=== PATIENT | male | born 1970 | race Caucasian/White ===

== ENCOUNTER 2017-07-02 15:46 | Emergency (ER) | payer OTHER ==
[2017-07-02] MEDS: DIPHTH/TET/ACEL PERTUSS (ADULT) 0.5 ML VIAL IM* (16:32)
[2017-07-02] MEDS: LIDOCAINE 1% (MDV) 10 ML INJ INFIL (16:32)
[2017-07-02] MEDS: CEFAZOLIN 1 GM INJ IM (17:51)
== END 2017-07-02 19:58 | disposition home or self-care (01) ==
LOC: FTE 15:46
DX: S61.313A Laceration without foreign body of left middle finger with damage to nail, initial encounter (principal); I10 Essential (primary) hypertension; E11.9 Type 2 diabetes mellitus without complications; W23.0XXA Caught, crushed, jammed, or pinched between moving objects, initial encounter; Y92.89 Other specified places as the place of occurrence of the external cause; Z23 Encounter for immunization
CPT/HCPCS: 11760; 73130-LT; 90471; 90715; 96372; 99284-25

== ENCOUNTER 2017-07-05 10:27 | Emergency (ER) | payer OTHER | END 2017-07-06 06:25 | disposition home or self-care (01) | LOC: E/R 07-06 06:25 | DX: Z48.01 Encounter for change or removal of surgical wound dressing (principal); I10 Essential (primary) hypertension; E11.9 Type 2 diabetes mellitus without complications; S61.313A Laceration without foreign body of left middle finger with damage to nail, initial encounter; X58.XXXA Exposure to other specified factors, initial encounter; Y92.9 Unspecified place or not applicable | CPT/HCPCS: 29130; 99282-25 ==